=== PATIENT | female | born 1990 | race Caucasian/White ===

== ENCOUNTER 2017-12-14 21:38 | Emergency (ER) | payer OTHER ==
--- NOTE | 2017-12-14 21:43 | UC ---
Skin Complaint HPI - HPI Summary HPI Summary: 27 yo female presents with rash on torso. She tells me that on 12/10/17 she herniated a lumbar disc while bending over and lifting a heavy box - this caused her pain and she fell face first onto the floor fracturing bones in her right face. She went to the ER and was treated. Since that time she has been taking amoxicillin for infection. This afternoon developed pustules on abdomen and back and is concerned this is an allergic reaction to amoxicillin. She has had amoxicillin and PCN in the past with no issue. Denies fever, chills, difficulty breathing, throat swelling, SOB, chest pain. - History of Current Complaint Time Seen by Provider: 12/14/17 21:42 Stated Complaint: RASH Hx Obtained From: Patient Onset/Duration: Sudden Onset Skin Exposure Onset/Duration: Hours Ago Current Severity: None - Allergy/Home Medications Allergies/Adverse Reactions: Allergies Allergy/AdvReac Type Severity Reaction Status Date / Time No Known Allergies Allergy Verified 12/14/17 22:00 Review of Systems Constitutional: Negative Skin: Rash Eyes: Negative ENT: Negative Respiratory: Negative Cardiovascular: Negative Gastrointestinal: Negative Neurological: Negative Psychological: Negative All Other Systems Reviewed And Are Negative: Yes PMH/Surg Hx/FS Hx/Imm Hx - Additional Past Medical History Additional PMH: None - Surgical History Surgical History: None - Family History Known Family History: Positive: None - Social History Occupation: Employed Full-time Lives: With Family Alcohol Use: Occasionally Substance Use Type: None Smoking Status (MU): Never Smoked Tobacco Physical Exam - Summary Physical Exam Summary: GENERAL: NAD. WDWN. No pain distress. SKIN: Abdomen and back with scattered 1-2mm pustules with mildly erythematous bases. No hives, edema, warmth, streaking, blistering, or scabbing. NECK: Supple. Nontender. No lymphadenopathy. CHEST: No accessory muscle use. Breathing comfortably and in no distress. CV: Pulses intact. Cap refill <2seconds NEURO: Alert. PSYCH: Age appropriate behavior. Triage Information Reviewed: Yes Vital Signs: Vital Signs: Temp Pulse Resp BP Pulse Ox 100.5 F 108 12 129/78 100 12/14/17 21:52 12/14/17 21:52 12/14/17 21:52 12/14/17 21:52 12/14/17 21:52 Vital Signs Reviewed: Yes Course/Dx - Course Course Of Treatment: Low suspicion for allergic reaction as she has had PCN in the past without issue and these appear more pustule/folliculitis in nature. A culture was obtained. Advised to continue taking antibiotics and will refer her to derm. If she develops SOB, difficulty breathing, chest pain or any new symptoms to go to the ED. Pt voiced understanding and is agreeable to plan. - Diagnoses Provider Diagnoses: Folliculitis Discharge - Sign-Out/Discharge Documenting (check all that apply): Patient Departure All imaging exams completed and their final reports reviewed: No Studies - Discharge Plan Condition: Stable Disposition: HOME Patient Education Materials: Folliculitis (ED) Referrals: No Primary Care Phys,NOPCP [Primary Care Provider] - Chaz Mott MD [Medical Doctor] - As Soon As Possible Additional Instructions: If you develop a fever, shortness of breath, chest pain, new or worsening symptoms - please call your PCP or go to the ED. - Billing Disposition and Condition Condition: STABLE Disposition: Home
[2017-12-14 22:00] VITALS: BP 129/78
== END 2017-12-14 22:07 | disposition home or self-care (01) ==
LOC: UCEAST 21:38
DX: L73.9 Follicular disorder, unspecified (principal)
CPT/HCPCS: 87070; 87205; 99211; G0463